=== PATIENT | female | born 1955 | race Caucasian/White ===

== ENCOUNTER 2017-08-27 17:39 | Emergency (ER) | payer MEDICAID, SELFPAY ==
[2017-08-27 17:39] VITALS: BP 178/89; PULSE 119; RESP 18; TEMP 36.9; O2SAT 98; BMI 320045.5
[2017-08-27 17:40] VITALS: BP 162/10; PULSE 114; RESP 22; TEMP 36.9; O2SAT 100; BMI 27297.1
== END 2017-08-27 18:45 | disposition left against medical advice (07) ==
LOC: ER 20:23
PROVIDERS: Emergency Provider Emergency Medicine; PCP Nurse Practitioner Family
DX: R10.9 Unspecified abdominal pain (principal); F41.9 Anxiety disorder, unspecified; F41.0 Panic disorder [episodic paroxysmal anxiety]; G91.9 Hydrocephalus, unspecified; G93.9 Disorder of brain, unspecified; I10 Essential (primary) hypertension; Z88.0 Allergy status to penicillin; Z87.891 Personal history of nicotine dependence; Z79.899 Other long term (current) drug therapy
CPT/HCPCS: 99211; 99282

== ENCOUNTER 2017-08-29 11:47 | Emergency (ER) | payer MEDICAID, SELFPAY ==
[2017-08-29 11:48] VITALS: BP 166/109; PULSE 103; RESP 22; TEMP 36.5; O2SAT 97; BMI 60.5
--- NOTE | 2017-08-29 12:08 | CT_ITS ---
CT head/brain wo con HISTORY: Severe headache ITS.REASON: headache ORDERING PHYSICIAN: Ramesy Gomez MD PATIENT AGE: 62 years COMPARISON: 09/06/2015 TECHNIQUE: Axial images obtained without contrast. Brain and bone windows reviewed. FINDINGS: The fourth ventricle is deviated slightly to the right and attenuated along its left lateral aspect with some subtle decreased attenuation within the left cerebellar hemisphere suspicious for left cerebellar mass. On image #14 there is a suggestion of a rounded lesion posterior to the left petrous bone at 2.[address] scan of the head are properly MRI without and with contrast for further evaluation. The ventricles are slightly prominent than when compared to previous study of 09/06/2015. The fourth ventricle deviated to the right by approximately 5 mm. No acute intracranial hemorrhage evident. No other significant anomalies apparent. IMPRESSION: Left cerebellar mass with compression upon the fourth ventricle with fourth ventricle shift to the right x 5 mm with mild hydrocephalus. It is difficult to determine the exact margins of suspected mass but may be posterior to the petrous bone at 2.4 cm with surrounding edema. Recommend CT brain with contrast for further MRI of the brain without and with contrast for further evaluation. Significant findings called to Dr. Gomez on 08/29/2017 1:19 PM.
--- NOTE | 2017-08-29 12:16 | PC.NURSE ---
pt refuses any iv work or labs
--- NOTE | 2017-08-29 12:29 | XR_ITS ---
XR chest 2V HISTORY: Confusion, falling, headache, cerebellar mass ITS.REASON: falls ORDERING PHYSICIAN: Ramsey Gomez MD PATIENT AGE: 62 years COMPARISON: 04/25/2008 FINDINGS: There is increased soft tissue density left paratracheal region consistent with goiter tracheal deviation toward the right. This was present on the previous exam. The tracheal deviation appears slightly greater on today's study. Unremarkable cardiovascular structures. No lobar consolidation or collapse. There are chronic changes within the right middle lobe. No acute bony anomalies. IMPRESSION: 1. Left paratracheal mass which may be slightly larger likely related to goiter/thyroid mass. 2. Atelectatic changes in the right middle lobe.
--- NOTE | 2017-08-29 12:33 | [facility].EDGENADL ---
ED Disposition Clinical Impression: Hydrocephalus, Brain mass Disposition: Xfer Short-Term Hosp Condition on Discharge: Fair Instructions: DI for Altered Mental Status Referrals: Roz Macias APRN [Primary Care Provider] - - Critical Care Critical Care Time: No Attestation: On , the high probability of a clinically significant, sudden or life threatening deterioration of the following system(s) required my full and direct attention, intervention and personal management. The time I documented below is in addition to time spent performing reported procedures but includes the following listed in this critical care notation. Medical Decision Making - Medical Records MR Comment: 1311 two different staff state that this is baseline behavior for the patient. And is refusing blood draw here. 1322 radiologist has called the patient has a brain mass and desires CT with IV contrast inform the patient of this and she is now agreeing to blood. draw. IMPRESSION: Left cerebellar mass with compression upon the fourth ventricle with fourth. ventricle shift to the right x 5 mm with mild hydrocephalus. It is difficult to. determine the exact margins of suspected mass but may be posterior to the. petrous bone at 2.4 cm with surrounding edema. Recommend CT brain with contrast for further MRI of the brain without and with. contrast for further evaluation. Significant findings called to Dr. Gomez on 08/29/2017 1:[address] for repeat scan, call out to nuerology at [facility] is on diversion. pt is alert and orientated x3. 1534 tabitha MCKEON accepts in transfer to . ER MD will accept if need be as well. Vital Signs: 08/29/17 11:48 08/29/17 14:17 08/29/17 14:55 Temperature 97.7 F Temperature Source Oral Pulse Rate [Left Radial] 103 H 94 H 94 H Respiratory Rate 22 19 19 Blood Pressure [Right Arm] 166/109 190/90 190/90 Blood Pressure Mean [Right Arm] 128 123 123 Blood Pressure Source [Right Arm] Automatic Cuff Automatic Cuff Automatic Cuff Blood Pressure Position [Right Arm] Supine Sitting Sitting 02 Sat by Pulse Oximetry 97 98 98 Oxygen Delivery Method Room Air Room Air Room Air - Lab Data Lab Results 08/29/17 13:24: WBC 6.5, RBC 4.74, Hgb 13.6, Hct 40.6, MCV 85.6, MCH 28.8, MCHC 33.6, RDW 13.5, Plt Count 116 L, MPV 7.7, Neut % (Auto) 69.6, Lymph % (Auto) 21.7, Major % (Auto) 7.0, Eos % (Auto) 1.5, Baso % (Auto) 0.2, Neut # (Auto) 4.5, Lymph # (Auto) 1.4, Major # (Auto) 0.5, Eos # (Auto) 0.1, Baso # (Auto) 0.0 08/29/17 13:24: Sodium 139, Potassium 3.6, Chloride 102, Carbon Dioxide 28, Anion Gap 12.6, BUN 25 H, Creatinine 1.47 H, Estimated Creat Clear 31, Estimated GFR 36 L, Est GFR ( Amer) 43 L, Glucose 149 H, Calcium 9.9, Total Bilirubin 0.8, AST 20, ALT 26, Alkaline Phosphatase 110, Troponin I 0.03, Total Protein 7.1, Albumin 3.8, Globulin 3.3 H, Albumin/Globulin Ratio 1.2 Result diagrams: 08/29/17 13:24 08/29/17 13:24 Orders (Tests/Meds): ED MEDICATIONS Discontinued Medications Generic Name Dose Route Start Last Admin Trade Name Freq PRN Reason Stop Dose Admin Dexamethasone Sodium Phosphate 10 mg 08/29/17 15:16 Decadron 4mg/Ml 1ml Vial IV 08/29/17 15:17 ONCE ONE Sodium Chloride 1,000 mls @ 999 mls/hr 08/29/17 12:45 08/29/17 14:22 Sod Chloride 0.9% 1000ml Bag IV 08/29/17 13:45 999 mls/hr .Q1H1M ALANA Administration ORDERS Category Date Time Status CT head/brain w con Stat Cat Scan 08/29/17 13:18 Taken UA [Urinalysis and Microscopic] Stat Lab 08/29/17 12:31 Ordered - ECG Data Tracing #1 ER EKG read by myself shows normal sinus rhythm rate of 94, normal axis, no QT prolongation, normal EKG - Danny Inquiry Pt receiving controlled substance: No General Adult HPI - General Chief complaint: Fall Stated complaint: altered mental status Mode of Arrival: EMS Limitations: Altered Mental Status Description of Symptoms (Recalled from
--- NOTE | 2017-08-29 12:36 | ED_ITS ---
ED Disposition Clinical Impression: Hydrocephalus, Brain mass Disposition: Xfer Short-Term Hosp Condition on Discharge: Fair Instructions: DI for Altered Mental Status Referrals: Roz Macias APRN [Primary Care Provider] - - Critical Care Critical Care Time: No Attestation: On , the high probability of a clinically significant, sudden or life threatening deterioration of the following system(s) required my full and direct attention, intervention and personal management. The time I documented below is in addition to time spent performing reported procedures but includes the following listed in this critical care notation. Medical Decision Making - Medical Records MR Comment: 1311 two different staff state that this is baseline behavior for the patient. And is refusing blood draw here. 1322 radiologist has called the patient has a brain mass and desires CT with IV contrast inform the patient of this and she is now agreeing to blood. draw. IMPRESSION: Left cerebellar mass with compression upon the fourth ventricle with fourth. ventricle shift to the right x 5 mm with mild hydrocephalus. It is difficult to. determine the exact margins of suspected mass but may be posterior to the. petrous bone at 2.4 cm with surrounding edema. Recommend CT brain with contrast for further MRI of the brain without and with. contrast for further evaluation. Significant findings called to Dr. Gomez on 08/29/2017 1:[address] PM[address] for repeat scan, call out to nuerology at [facility] is on diversion. pt is alert and orientated x3. 1534 tabitha MCKEON accepts in transfer to . ER MD will accept if need be as well. Vital Signs: 08/29/17 11:48 08/29/17 14:17 08/29/17 14:55 Temperature 97.7 F Temperature Source Oral Pulse Rate [Left Radial] 103 H 94 H 94 H Respiratory Rate 22 19 19 Blood Pressure [Right Arm] 166/109 190/90 190/90 Blood Pressure Mean [Right Arm] 128 123 123 Blood Pressure Source [Right Arm] Automatic Cuff Automatic Cuff Automatic Cuff Blood Pressure Position [Right Arm] Supine Sitting Sitting 02 Sat by Pulse Oximetry 97 98 98 Oxygen Delivery Method Room Air Room Air Room Air - Lab Data Lab Results 08/29/17 13:24: WBC 6.5, RBC 4.74, Hgb 13.6, Hct 40.6, MCV 85.6, MCH 28.8, MCHC 33.6, RDW 13.5, Plt Count 116 L, MPV 7.7, Neut % (Auto) 69.6, Lymph % (Auto) 21.7, [place] % (Auto) 7.0, Eos % (Auto) 1.5, Baso % (Auto) 0.2, Neut # (Auto) 4.5 , Lymph # (Auto) 1.4, [place] # (Auto) 0.5, Eos # (Auto) 0.1, Baso # (Auto) 0.0 08/29/17 13:24: Sodium 139, Potassium 3.6, Chloride 102, Carbon Dioxide 28, Anion Gap 12.6, BUN 25 H, Creatinine 1.47 H, Estimated Creat Clear 31, Estimated GFR 36 L, Est GFR ( Amer) 43 L, Glucose 149 H, Calcium 9.9, Total Bilirubin 0.8, AST 20, ALT 26, Alkaline Phosphatase 110, Troponin I 0.03, Total Protein 7.1, Albumin 3.8, Globulin 3.3 H, Albumin/Globulin Ratio 1.2 Result diagrams: 08/29/17 13:24 08/29/17 13:24 Orders (Tests/Meds): ED MEDICATIONS Discontinued Medications Generic Name Dose Route Start Last Admin Trade Name Freq PRN Reason Stop Dose Admin Dexamethasone Sodium Phosphate 10 mg 08/29/17 15:16 Decadron 4mg/Ml 1ml Vial IV 08/29/17 15:17 ONCE ONE Sodium Chloride 1,000 mls @ 999 mls/hr 08/29/17 12:45 08/29/17 14:22 Sod Chloride 0.9% 1000ml Bag IV 08/29/17 13:45 999 mls/hr .Q1H1M ALANA Administration ORDERS
--- NOTE | 2017-08-29 13:18 | CT_ITS ---
CT head/brain w con HISTORY: Severe headache, abnormal unenhanced CT head with cerebellar mass and hydrocephalus ITS.REASON: radiology desires contrast eval brain mass, GRANADO ORDERING PHYSICIAN: Ramsey Gomez MD PATIENT AGE: 62 years COMPARISON: Unenhanced exam from the same day TECHNIQUE: Axial images obtained with 50 mL's of Isovue 300 . Brain and bone windows reviewed. FINDINGS: There is a fairly well-circumscribed 3.8 x 2.8 cm mass within the left aspect of the cerebellum. This is contiguous with the posterior aspect of the left petrous bone and tentorium. There is moderate contrast enhancement with some heterogeneity posteriorly. There is also widening of the left acoustic foramen. The mass extends immediately medial to the level of the acoustic foramen. The fourth ventricle is shifted toward the right by approximately 5 to 6 mm and there is mild right hydrocephalus secondary to obstruction at the fourth ventricle level. There is moderate compression upon the midbrain and brainstem. No other significant anomalies are evident. No other enhancing lesions apparent. IMPRESSION: 1. 3.8 x 2.8 cm mass within the left cerebellar hemisphere as described above showing moderate contrast enhancement with compression upon the fourth ventricle, brainstem, and midbrain. 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 Meningioma is felt to be less likely but not entirely excluded. 2. Mild hydrocephalus with dilatation of the lateral ventricles and third ventricle which has developed since the older CT of 09/06/2015
[2017-08-29 13:46] LABS: Basophils % 0.2 % (0.1-2.0); Eosinophils # 0.1 K/mm3 (0.0-0.4); Eosinophils % 1.5 % (0.1-12.0); Hematocrit 40.6 % (37.0-47.0); Hemoglobin 13.6 g/dL (12.2-16.2); Lymphocytes # 1.4 K/mm3 (0.7-4.5); Lymphocytes % 21.7 K/mm3 (10-50); Mean Corpuscular HGB Conc 33.6 g/dL (31.8-35.4); Mean Corpuscular Hemoglobin 28.8 pg (27.0-31.2); Mean Corpuscular Volume 85.6 fl (81-99); Mean Platelet Volume 7.7 fl (7.4-10.4); Monocytes # 0.5 K/mm3 (0.1-1.0); Neutrophils # 4.5 K/mm3 (1.8-7.8); Neutrophils % 69.6 % (37.0-80.0); Platelet Count 116 K/mm3 (142-424); Red Blood Count 4.74 M/mm3 (4.20-5.40); Red Cell Distribution Width 13.5 % (11.5-17.5); White Blood Count 6.5 K/mm3 (4.8-10.8)
[2017-08-29 14:05] LABS: Alanine Aminotransferase 26 U/L (12-78); Albumin Level 3.8 gm/dL (3.4-5.0); Albumin/Globulin Ratio 1.2 (1.1-1.8); Alkaline Phosphatase 110 U/L (46-116); Anion Gap 12.6 mEq/L (5-15); Aspartate Amino Transferase 20 U/L (15-37); Bilirubin,Total 0.8 mg/dL (0.2-1.0); Blood Urea Nitrogen 25 mg/dL (7-18); Calcium 9.9 mg/dL (8.5-10.1); Carbon Dioxide 28 mmol/L (21.0-32.0); Chloride 102 mmol/L (98-107); Creatinine Clearance Estimated 31 mL/min (0-300); Creatinine,Serum 1.47 mg/dL (0.55-1.02); Estimated Glomerular Filt Rate 36 ml/min (>60); GFR (African American) 43 ML/MIN (>60); Globulin 3.3 gm/dl (1.3-3.2); Glucose 149 mg/dL (74-106); Potassium 3.6 mmoL/L (3.5-5.1); Sodium 139 mmol/L (136-145); Total Protein,Serum 7.1 gm/dL (6.4-8.2); Troponin I 0.03 ng/ml (0.00-0.06)
[2017-08-29 14:17] VITALS: BP 190/90; PULSE 94; RESP 19; O2SAT 98
[2017-08-29 14:55] VITALS: BP 190/90; PULSE 94; RESP 19; O2SAT 98
--- NOTE | 2017-08-29 15:14 | PC.NURSE ---
DR MULLINS FROM SPEAKING TO DR AC AT THIS TIME.
[2017-08-29 16:01] VITALS: BP 197/101; PULSE 98; RESP 16; TEMP 37; O2SAT 98
== END 2017-08-29 16:33 | disposition short-term general hospital (02) ==
PROVIDERS: Emergency Provider Emergency Medicine; PCP Nurse Practitioner Family
DX: G91.9 Hydrocephalus, unspecified (principal); G93.89 Other specified disorders of brain; F31.9 Bipolar disorder, unspecified; E11.9 Type 2 diabetes mellitus without complications; Z91.81 History of falling; Z79.899 Other long term (current) drug therapy; Z88.0 Allergy status to penicillin; Z88.8 Allergy status to other drugs, medicaments and biological substances; Z85.9 Personal history of malignant neoplasm, unspecified; Z87.891 Personal history of nicotine dependence
CPT/HCPCS: 70450; 70460; 71046; 80053; 84484; 85025; 93005; 93041; 96365; 99284; Q9967